=== PATIENT | male | born 1945 | race Caucasian/White ===

== ENCOUNTER 2019-08-27 06:54 | Emergency (ER) | payer OTHER ==
[~2019-08-27] VITALS: Ht 180.3 cm; Wt 88.9 kg
[2019-08-27 06:57] VITALS: BP 136/88
--- NOTE | 2019-08-27 07:03 | NUR ---
PT AMBULATED TO BED 11 WTIH STEADY GAIT.
[2019-08-27] MEDS ORDERED: NACL 0.9% 1,000 ML IV SCH (07:05)
--- NOTE | 2019-08-27 07:20 | NUR ---
C/O BLOODY STOOLS AND DIARRHEA STARTING YESTERDAY. PER PT, IT IS A DARK RED COLOR. PT STATES HE ONLY FEELS OCCASIONAL CRAMPING PAIN RIGHT BEFORE HAVING A BOWEL MOVEMENT, AND AT THIS TIME HAS NO PAIN. DENIES N/V/FEVER. ABDOMEN SOFT/FLAT/NON TENDER. BOWEL SOUNDS PRESENT X4. PT STATES HE HAS A HX OF CARDIAC "PROBLEMS" AND CVA BUT ONLY TAKES "LOW DOSE" ASPIRIN, NO OTHER ANTICOAGULANTS. PT PROVIDED WITH GOWN AND PLACED ON BEDSIDE LARD TUB WASHER, BED IN LOW POSITION, SIDE RAIL UP X1.
[2019-08-27 07:22] LABS: BASOPHILS # (AUTO) 0.1 K/uL (0.00-0.22); BASOPHILS % (AUTO) 1.9 % (0.0-2.0); EOSINOPHILS # (AUTO) 0.4 K/uL (0-0.4); EOSINOPHILS % (AUTO) 5.4 % (0.0-4.0); HEMATOCRIT 42.8 % (36-52); HEMOGLOBIN 14.2 g/dL (12.0-18.0); LYMPHOCYTES # (AUTO) 1.5 K/uL (2.0-11.5); LYMPHOCYTES % (AUTO) 20.5 % (20.5-51.1); MEAN CORPUSCULAR HEMOGLOBIN 30 pg (27-31); MEAN CORPUSCULAR HGB CONC 33 g/dL (33-37); MEAN CORPUSCULAR VOLUME 89.6 fL (80-94); MONOCYTES # (AUTO) 0.5 K/uL (0.8-1.0); MONOCYTES % (AUTO) 6.9 % (1.7-9.3); NEUTROPHILS # (AUTO) 4.8 K/uL (1.8-7.7); NEUTROPHILS % (AUTO) 65.3 % (42.2-75.2); PLATELET COUNT (AUTO) 101 K/uL (140-450); RED BLOOD CELL COUNT(AUTO) 4.77 MIL/uL (4.20-6.10); WHITE BLOOD COUNT (AUTO) 7.4 K/uL (4.8-10.8)
--- NOTE | 2019-08-27 07:38 | NUR ---
ERMD AT BEDSIDE EVALUATING PT
--- NOTE | 2019-08-27 07:44 | NUR ---
PT TAKEN TO CT AT THIS TIME
[2019-08-27 07:45] LABS: ALBUMIN 3.5 g/dL (3.4-5.0); ANION GAP 9.9 (8-16); ASPARTATE AMINOTRANSFERASE 16 U/L (15-37); CARBON DIOXIDE 29.3 mmol/L (21-32); CHLORIDE 108 mmol/L (98-107); CREATININE 1.5 mg/dL (0.6-1.3); GLUCOSE 97 mg/dL (74-106); LIPASE 99 U/L (73-393); POTASSIUM 4.2 mmol/L (3.5-5.1); SODIUM SERUM 143 mmol/L (136-145); TOTAL BILIRUBIN 0.8 mg/dL (0.0-1.0); UREA NITROGEN, BLOOD 21 mg/dL (7-18)
--- NOTE | 2019-08-27 07:52 | NUR ---
INFORMED LAB THAT TROPONIN WAS ADDED TO LABWORK
[2019-08-27] MEDS ORDERED: TRAV5SOL OP (08:22)
[2019-08-27] MEDS ORDERED: ASPI-1205 PO (08:26)
[2019-08-27] MEDS ORDERED: ROSU5TAB PO (08:26)
--- NOTE | 2019-08-27 08:28 | NUR ---
pt resting in bed, no new needs at this time
[2019-08-27 09:12] VITALS: BP 135/87
--- NOTE | 2019-08-27 09:14 | NUR ---
Patient discharged with v/s stable. Written and verbal after care instructions given and explained. Patient alert, oriented and verbalized understanding of instructions. Ambulatory with steady gait. All questions addressed prior to discharge. ID band removed. Patient advised to follow up with PMD. Rx of LOMOTIL & CIPRO given. Patient educated on indication of medication including possible reaction and side effects. Opportunity to ask questions provided and answered.
--- NOTE | 2019-08-27 09:15 | NUR ---
SENT ALL PATIENT LABWORK AND RESULTS WITH HIM
== END 2019-08-27 09:12 | disposition home or self-care (01) ==
LOC: MED 06:54
DX: K92.1 Melena (principal); Z79.899 Other long term (current) drug therapy; Z79.82 Long term (current) use of aspirin; Z86.79 Personal history of other diseases of the circulatory system; Z98.84 Bariatric surgery status
CPT/HCPCS: 36415; 71045; 74176; 80053; 83690; 84484; 85025; 93005; 96360; 99285; J7030; Q0092

== ENCOUNTER 2019-12-10 21:38 | Emergency (ER) | payer OTHER ==
[~2019-12-10] VITALS: Ht 177.8 cm; Wt 90.7 kg
[~2019-12-10 21:38] MED LIST: ASPI-1205 PO; ROSU5TAB PO; TRAV5SOL OP
[2019-12-10 21:43] VITALS: BP 117/94
[2019-12-10 22:41] LABS: BASOPHILS # (AUTO) 0.1 K/uL (0.00-0.22); BASOPHILS % (AUTO) 0.8 % (0.0-2.0); EOSINOPHILS # (AUTO) 0.4 K/uL (0-0.4); EOSINOPHILS % (AUTO) 5.3 % (0.0-4.0); HEMATOCRIT 42.2 % (36-52); LYMPHOCYTES # (AUTO) 1.7 K/uL (2.0-11.5); MEAN CORPUSCULAR HEMOGLOBIN 29 pg (27-31); MEAN CORPUSCULAR HGB CONC 33 g/dL (33-37); MEAN CORPUSCULAR VOLUME 88.7 fL (80-94); MONOCYTES # (AUTO) 0.7 K/uL (0.8-1.0); MONOCYTES % (AUTO) 8.9 % (1.7-9.3); NEUTROPHILS # (AUTO) 5.2 K/uL (1.8-7.7); PLATELET COUNT (AUTO) 111 K/uL (140-450); RED BLOOD CELL COUNT(AUTO) 4.76 MIL/uL (4.20-6.10); RED CELL DISTRIBUTION WIDTH 14.9 % (11.6-13.7); WHITE BLOOD COUNT (AUTO) 8.1 K/uL (4.8-10.8)
[2019-12-10 22:54] LABS: ALBUMIN 3.4 g/dL (3.4-5.0); ANION GAP 10.9 (8-16); ASPARTATE AMINOTRANSFERASE 17 U/L (15-37); CARBON DIOXIDE 27.1 mmol/L (21-32); CHLORIDE 109 mmol/L (98-107); CREATININE 1.6 mg/dL (0.6-1.3); GLUCOSE 122 mg/dL (74-106); LIPASE 88 U/L (73-393); SODIUM SERUM 143 mmol/L (136-145); TOTAL BILIRUBIN 0.4 mg/dL (0.0-1.0); UREA NITROGEN, BLOOD 21 mg/dL (7-18)
[2019-12-10 23:47] LABS: APPEARANCE,URINE CLEAR (CLEAR); BILIRUBIN,URINE NEGATIVE (NEGATIVE); BLOOD, URINE NEGATIVE (NEGATIVE); COLOR,URINE YELLOW (YELLOW); LEUKOCYTE ESTERASE ,URINE NEGATIVE (NEGATIVE); NITRITE, URINE NEGATIVE (NEGATIVE); UGLUCOSE NEGATIVE (NEGATIVE)
[2019-12-11 00:50] VITALS: BP 117/94
== END 2019-12-11 00:50 | disposition home or self-care (01) ==
LOC: MED 21:38
DX: K92.1 Melena (principal); I51.9 Heart disease, unspecified; Z86.73 Personal history of transient ischemic attack (TIA), and cerebral infarction without residual deficits; Z79.899 Other long term (current) drug therapy; Z91.018 Allergy to other foods
CPT/HCPCS: 36415; 80053; 81003; 83690; 85025; 86886; 86900; 86901; 99284

== ENCOUNTER 2020-01-12 15:29 | Emergency (ER) | payer OTHER ==
[~2020-01-12] VITALS: Ht 180.3 cm; Wt 90.7 kg
[2020-01-12 15:37] VITALS: BP 162/95
[2020-01-12 16:05] LABS: BASOPHILS # (AUTO) 0.1 K/uL (0.00-0.22); BASOPHILS % (AUTO) 1.1 % (0.0-2.0); EOSINOPHILS # (AUTO) 0.2 K/uL (0-0.4); EOSINOPHILS % (AUTO) 2.8 % (0.0-4.0); HEMATOCRIT 42.3 % (36-52); HEMOGLOBIN 14.1 g/dL (12.0-18.0); LYMPHOCYTES # (AUTO) 1.3 K/uL (2.0-11.5); MEAN CORPUSCULAR HEMOGLOBIN 29 pg (27-31); MEAN CORPUSCULAR HGB CONC 33 g/dL (33-37); MEAN CORPUSCULAR VOLUME 86.5 fL (80-94); MONOCYTES # (AUTO) 0.5 K/uL (0.8-1.0); MONOCYTES % (AUTO) 6.8 % (1.7-9.3); NEUTROPHILS # (AUTO) 5.6 K/uL (1.8-7.7); NEUTROPHILS % (AUTO) 72.3 % (42.2-75.2); PLATELET COUNT (AUTO) 121 K/uL (140-450); RED BLOOD CELL COUNT(AUTO) 4.89 MIL/uL (4.20-6.10); RED CELL DISTRIBUTION WIDTH 15.3 % (11.6-13.7); WHITE BLOOD COUNT (AUTO) 7.8 K/uL (4.8-10.8)
[2020-01-12 16:20] LABS: ALBUMIN 3.8 g/dL (3.4-5.0); ANION GAP 14.5 (8-16); ASPARTATE AMINOTRANSFERASE 18 U/L (15-37); CARBON DIOXIDE 27.6 mmol/L (21-32); CHLORIDE 104 mmol/L (98-107); CREATININE 1.5 mg/dL (0.6-1.3); GLUCOSE 120 mg/dL (74-106); POTASSIUM 4.1 mmol/L (3.5-5.1); SODIUM SERUM 142 mmol/L (136-145); TOTAL BILIRUBIN 0.5 mg/dL (0.0-1.0); UREA NITROGEN, BLOOD 15 mg/dL (7-18)
[2020-01-12] MEDS: NACL 0.9% 1,000 ML IV ONE (16:56)
[2020-01-12 17:56] VITALS: BP 172/87
== END 2020-01-12 17:56 | disposition home or self-care (01) ==
LOC: MED 15:29
DX: R55 Syncope and collapse (principal); I63.9 Cerebral infarction, unspecified; I10 Essential (primary) hypertension; I51.89 Other ill-defined heart diseases; Z79.899 Other long term (current) drug therapy; Z86.79 Personal history of other diseases of the circulatory system
CPT/HCPCS: 36415; 70450; 71045; 80053; 83880; 84484; 85025; 93005; 96360; 99285; J7030; Q0092

== ENCOUNTER 2020-07-06 13:58 | Outpatient (CLI) | payer OTHER ==
[2020-07-06 14:42] LABS: CREATININE 1.6 mg/dL (0.6-1.3)
== END 2020-07-06 21:34 | disposition home or self-care (01) ==
LOC: MLB 13:58
DX: I10 Essential (primary) hypertension (principal); E78.5 Hyperlipidemia, unspecified
CPT/HCPCS: 36415; 82565; 84520

== ENCOUNTER 2020-07-25 16:45 | Emergency (ER) | payer OTHER ==
[~2020-07-25] VITALS: Ht 180.3 cm; Wt 88.5 kg
[2020-07-25 16:54] VITALS: BP 149/90
--- NOTE | 2020-07-25 16:59 | NUR ---
75/M presents to ED with c/o chest pain x1 week. Patient states he has had 5/10 sharp intermittent chest pain for 1 week with no relief. Patient states he is currently undergoing trial at [facility] for aneurysm repair and was told to come to the nearest emergency room if he experiences chest pain. EKG performed bedside, patient placed in gown on bedside patient monitor, patient denies chest pain at this time.
[2020-07-25 17:22] LABS: BASOPHILS # (AUTO) 0.1 K/uL (0.00-0.22); BASOPHILS % (AUTO) 1.2 % (0.0-2.0); EOSINOPHILS # (AUTO) 0.2 K/uL (0-0.4); EOSINOPHILS % (AUTO) 2.7 % (0.0-4.0); HEMATOCRIT 45.4 % (36-52); HEMOGLOBIN 15.4 g/dL (12.0-18.0); LYMPHOCYTES # (AUTO) 1.3 K/uL (2.0-11.5); LYMPHOCYTES % (AUTO) 16.1 % (20.5-51.1); MEAN CORPUSCULAR HEMOGLOBIN 31 pg (27-31); MEAN CORPUSCULAR HGB CONC 34 g/dL (33-37); MEAN CORPUSCULAR VOLUME 90.4 fL (80-94); MONOCYTES # (AUTO) 0.7 K/uL (0.8-1.0); MONOCYTES % (AUTO) 8.8 % (1.7-9.3); NEUTROPHILS # (AUTO) 5.8 K/uL (1.8-7.7); NEUTROPHILS % (AUTO) 71.2 % (42.2-75.2); PLATELET COUNT (AUTO) 115 K/uL (140-450); RED BLOOD CELL COUNT(AUTO) 5.02 MIL/uL (4.20-6.10); RED CELL DISTRIBUTION WIDTH 14.3 % (11.6-13.7); WHITE BLOOD COUNT (AUTO) 8.2 K/uL (4.8-10.8)
[2020-07-25 17:34] LABS: ALBUMIN 4.1 g/dL (3.4-5.0); ANION GAP 11.7 (8-16); ASPARTATE AMINOTRANSFERASE 22 U/L (15-37); CARBON DIOXIDE 27.4 mmol/L (21-32); CHLORIDE 108 mmol/L (98-107); CREATININE 1.7 mg/dL (0.6-1.3); GLUCOSE 90 mg/dL (74-106); POTASSIUM 4.1 mmol/L (3.5-5.1); SODIUM SERUM 143 mmol/L (136-145); TOTAL BILIRUBIN 0.9 mg/dL (0.0-1.0); UREA NITROGEN, BLOOD 21 mg/dL (7-18)
[2020-07-25 17:39] LABS: PROTHROMBIN TIME 10.6 secs (10.8-13.4)
--- NOTE | 2020-07-25 17:52 | NUR ---
MARIMAR SWAB COLLECTED AND SENT TO LAB.
--- NOTE | 2020-07-25 18:16 | NUR ---
Patient will be transferred to [facility], patient signed consent, awaiting updated transfer information. updated on patient.
--- NOTE | 2020-07-25 19:10 | NUR ---
Report received from RYAN Rubio for continuation of care.
--- NOTE | 2020-07-25 19:30 | NUR ---
Pt resting in bed, locked and in lowest position, HOB elevated, RR even and unlabored. Pt awake , alert and calm at this time. Pt states he dropped his mask , new mask provided at this time. Pt updated on eta for transfer at this time.
--- NOTE | 2020-07-25 19:52 | NUR ---
Per patient authorization, spoke w/ pt's Cary and updated her on pt's transfer status at this time.
--- NOTE | 2020-07-25 19:52 | NUR ---
Taty huertas in ED - 07/25/20 at 1953 by [facility] Per patient authorization, spoke w/ pt's Cary and updated her on pt's transfer status at this time.
--- NOTE | 2020-07-25 20:00 | NUR ---
Patient to be transferred to [facility]. Is being transferred due to HIGHER LEVEL OF CARE. Receiving facility has accepting physician and available space. ER physician has signed transfer form. Patient or responsible constitution party has agreed to transfer and signed form. Patient belongings inventoried and will be sent with patient. Copy of nursing notes, lab reports, EKG, Physicians Orders and X-rays to be sent with patient. Report called to RYAN PENG at receiving facility. [facility] ambulance service has been called for transfer. ETA is 1 MIN.
[2020-07-25 20:07] VITALS: BP 143/77
--- NOTE | 2020-07-25 20:07 | NUR ---
REPORT GIVEN TO [facility] FOR TRANSPORTATION OF THE PATIENT.
== END 2020-07-25 20:16 | disposition short-term general hospital (02) ==
LOC: MED 16:45
DX: I71.00 Dissection of unspecified site of aorta (principal); Z20.822 Contact with and (suspected) exposure to COVID-19; R07.9 Chest pain, unspecified; I10 Essential (primary) hypertension; Z86.73 Personal history of transient ischemic attack (TIA), and cerebral infarction without residual deficits; Z98.890 Other specified postprocedural states; Z79.899 Other long term (current) drug therapy
CPT/HCPCS: 36415; 71045; 80053; 83880; 84484; 85025; 85610; 86886; 86900; 86901; 93005; 99285

== ENCOUNTER 2020-10-04 18:37 | Emergency (ER) | payer OTHER ==
[~2020-10-04] VITALS: Ht 180.3 cm; Wt 78.0 kg
[2020-10-04 18:50] VITALS: BP 153/100
--- NOTE | 2020-10-04 19:30 | NUR ---
Taty huertas in ED - 10/04/20 at 2009 by [facility] CALL FOR BED PLACEMENT, NO ANSWER.
--- NOTE | 2020-10-04 19:40 | NUR ---
Taty huertas in EDM - 10/04/20 at 2009 by [facility] PATIENT LEFT WITHOUT BEING SEEN BY DR. PATEL. NO FURTHER CARE PROVIDED FOR PATIENT.
--- NOTE | 2020-10-04 20:19 | NUR ---
AMBULATED TO ER BED 11
[2020-10-04 20:43] VITALS: BP 149/61
--- NOTE | 2020-10-04 20:45 | NUR ---
c/o left rib pain and pleuritic chest pain s/p walking dog on thursday.
--- NOTE | 2020-10-04 21:24 | NUR ---
leroy swab collected.
--- NOTE | 2020-10-04 21:36 | NUR ---
Note kiya in ED - 10/04/20 at 2139 by [facility] d/c with VSS. d/c education given. opportunity to ask questions given and answered. no rx given.
--- NOTE | 2020-10-04 21:39 | NUR ---
pt to leave AMA. Dr. Cox aware.
== END 2020-10-04 21:45 | disposition left against medical advice (07) ==
LOC: MED 18:37
DX: R06.02 Shortness of breath (principal); I11.9 Hypertensive heart disease without heart failure; Z86.73 Personal history of transient ischemic attack (TIA), and cerebral infarction without residual deficits; Z91.010 Allergy to peanuts; Z20.822 Contact with and (suspected) exposure to COVID-19
CPT/HCPCS: 71045; 93005; 99285

== ENCOUNTER 2020-12-06 22:04 | Emergency (ER) | payer OTHER ==
[~2020-12-06] VITALS: Ht 180.3 cm; Wt 83.9 kg
[2020-12-06 22:35] VITALS: BP 149/82
--- NOTE | 2020-12-06 22:38 | NUR ---
TO LOBBY A/W BED AMBULATORY
== END 2020-12-06 23:13 | disposition left against medical advice (07) ==
LOC: MED 22:04
DX: K91.841 Postprocedural hemorrhage of a digestive system organ or structure following other procedure (principal); Z53.21 Procedure and treatment not carried out due to patient leaving prior to being seen by health care provider